=== PATIENT | female | born 1945 | race Caucasian/White ===

== ENCOUNTER 2021-05-05 09:03 | Outpatient (CLI) | payer MEDICARE, OTHER | END 2021-05-05 09:04 | disposition home or self-care (01) | LOC: CSHCT 09:03 | PROVIDERS: ATTEND Nurse Practitioner Acute Care | DX: M54.42 Lumbago with sciatica, left side (principal); M47.816 Spondylosis without myelopathy or radiculopathy, lumbar region | CPT/HCPCS: 72131 ==

== ENCOUNTER 2021-07-29 09:36 | Emergency (ER) | payer MEDICARE, OTHER | END 2021-07-29 11:20 | disposition home or self-care (01) | LOC: CSHERS 09:36 | DX: S29.012A Strain of muscle and tendon of back wall of thorax, initial encounter (principal); S16.1XXA Strain of muscle, fascia and tendon at neck level, initial encounter; E11.9 Type 2 diabetes mellitus without complications; I10 Essential (primary) hypertension; Z79.899 Other long term (current) drug therapy | CPT/HCPCS: 72072 ==

== ENCOUNTER 2021-07-30 13:17 | Inpatient (IN) | payer MEDICARE, OTHER ==
[2021-07-30 14:18] LABS: Hemoglobin 10.8 g/dL (12.0-15.5); Mean Corpuscular Hemoglobin 27.8 pg (27.0-33.0); Mean Corpuscular Volume 89.5 fl (81.6-98.3); Platelet Count 143 10x3/uL (150-450); RBC Distribution Width 13.6 % (11.5-14.5); Red Blood Cell (RBC) Count 3.89 10x6/uL (3.90-5.03); White Blood Cell (WBC) Count 8.5 10x3/uL (3.5-10.5)
[2021-07-30 14:20] LABS: ALT (SGPT) 48 U/L (8-55); AST (SGOT) 126 U/L (5-34); Albumin 3.3 g/dL (3.4-4.8); Alkaline Phosphatase 45 U/L (40-110); Anion Gap 13 mmol/L (10-20); BUN (Urea Nitrogen) 17 mg/dL (9.8-20.1); Bilirubin, Total 0.6 mg/dL (0.2-1.2); Calc. Creatinine Clearance 0 mL/min (70-130); Calcium 9.6 mg/dL (7.8-10.44); Carbon Dioxide 25 mmol/L (23-31); Chloride 99 mmol/L (98-107); Globulin 2.9 g/dL (2.4-3.5); Glucose 245 mg/dL (83-110); Potassium 3.4 mmol/L (3.5-5.1); Protein, Total 6.2 g/dL (5.8-8.1); Sodium 134 mmol/L (136-145)
[2021-07-30 14:27] LABS: MDiff Complete? YES
[2021-07-30] MEDS ORDERED: Cefepime 2 GM VIAL ONE (15:02)
[2021-07-30 15:08] LABS: Band 3 % (5-11); Eosinophils 1 % (0-10); Lymphocytes 8 % (21-51); Monocytes 9 % (0-10); Neutrophil 78 % (42-75); Nucleated RBC 1 % (0); Reactive Lymphocytes 1 % (0-10)
[2021-07-30 15:09] LABS: Platelet Morphology Comment Appears Adequate
[2021-07-30 15:47] LABS: CKMB 77.2 ng/mL (0-6.6)
[2021-07-30 17:46] LABS: Troponin I 0.091 ng/mL (< 0.028)
[2021-07-30] MEDS ORDERED: HumaLOG 300 UNITS/3 ML VIAL SC PRN (17:47)
[2021-07-30] MEDS ORDERED: Dextrose 50% Abboject 50 ML SYRINGE SLOW IVP PRN (17:47)
[2021-07-30] MEDS ORDERED: Dextrose 5% in Water 1,000 ML IV PRN (17:47)
[2021-07-30] MEDS ORDERED: METHOTREXATE SODIUM 10 MG PO SCH (18:00)
[2021-07-30 18:10] LABS: Lactic Acid 3.6 mmol/L (0.5-2.2)
[2021-07-30 19:10] VITALS: BMI 29.2
[2021-07-30] MEDS: Lactated Ringer's 1,000 ML IV SCH (20:46)
[2021-07-30] MEDS: Cholecalciferol 1,000 UNITS (25 MCG) TAB PO SCH (20:46)
[2021-07-30] MEDS: Acetaminophen 325 MG TAB PO PRN (20:46)
[2021-07-30] MEDS: Carvedilol 12.5 MG TAB PO SCH (20:47)
[2021-07-30] MEDS ORDERED: SIMVASTATIN 80 MG PO SCH (21:00)
[2021-07-30] MEDS ORDERED: Potassium Chloride 20 MEQ TAB PO SCH (21:00)
[2021-07-30 22:03] LABS: Troponin I 0.085 ng/mL (< 0.028)
[2021-07-31] MEDS: Vancomycin HCl 500 MG in Sodium Chloride 0.9% 100 ML IVPB SCH ×2 (03:56→17:36)
[2021-07-31 05:40] LABS: Anion Gap 12 mmol/L (10-20); BUN (Urea Nitrogen) 16 mg/dL (9.8-20.1); Calc. Creatinine Clearance 75 mL/min (70-130); Calcium 9.3 mg/dL (7.8-10.44); Carbon Dioxide 27 mmol/L (23-31); Chloride 105 mmol/L (98-107); Glucose 153 mg/dL (83-110); Potassium 3.9 mmol/L (3.5-5.1); Sodium 140 mmol/L (136-145)
[2021-07-31 06:13] LABS: Platelet Count 141 10x3/uL (150-450)
[2021-07-31 06:14] LABS: Hemoglobin 10.5 g/dL (12.0-15.5); Mean Corpuscular HGB CONC 31.1 g/dL (32.0-36.0); Mean Corpuscular Hemoglobin 27.6 pg (27.0-33.0); Mean Corpuscular Volume 88.9 fl (81.6-98.3); Mean Platelet Volume 11.7 fl (7.4-10.4); RBC Distribution Width 13.8 % (11.5-14.5); White Blood Cell (WBC) Count 9.5 10x3/uL (3.5-10.5)
[2021-07-31 06:16] LABS: MDiff Complete? YES
[2021-07-31 06:17] LABS: Platelet Morphology Comment PLT clumps seen-ADEQ; RBC Morphology Normal
[2021-07-31 06:21] LABS: Band 10 % (5-11); Lymphocytes 12 % (21-51); Metamyelocyte 1 % (0-0); Monocytes 13 % (0-10); Neutrophil 63 % (42-75); Promyelocytes 1 % (0-0)
[2021-07-31 06:23] LABS: Toxic Granulation SLIGHT
[2021-07-31] MEDS: Glimepiride 2 MG TAB PO SCH ×2 (09:44→17:36)
[2021-07-31] MEDS: Lactated Ringer's 1,000 ML IV SCH (09:44)
[2021-07-31] MEDS: Carvedilol 12.5 MG TAB PO SCH ×2 (09:44→21:43)
[2021-07-31] MEDS: Pioglitazone HCl 15 MG TAB PO SCH (09:45)
[2021-07-31] MEDS: Cholecalciferol 1,000 UNITS (25 MCG) TAB PO SCH ×2 (09:45→21:46)
[2021-07-31] MEDS: CEFAZOLIN 1 GM in Sodium Chloride 0.9% 100 ML IVPB SCH ×2 (13:58→21:46)
[2021-07-31 15:33] LABS: SARS-CoV-2 PCR by NAA Not Detected (NotDetected)
[2021-07-31] MEDS: Acetaminophen 325 MG TAB PO PRN (21:44)
[2021-08-01 03:52] LABS: Platelet Count 130 10x3/uL (150-450)
[2021-08-01 03:53] LABS: Hemoglobin 10.6 g/dL (12.0-15.5); Mean Corpuscular HGB CONC 31.7 g/dL (32.0-36.0); Mean Corpuscular Hemoglobin 27.7 pg (27.0-33.0); Mean Corpuscular Volume 87.2 fl (81.6-98.3); RBC Distribution Width 13.7 % (11.5-14.5); Red Blood Cell (RBC) Count 3.83 10x6/uL (3.90-5.03); White Blood Cell (WBC) Count 8.8 10x3/uL (3.5-10.5)
[2021-08-01 03:54] LABS: MDiff Complete? YES
[2021-08-01 03:55] LABS: Lactic Acid 0.9 mmol/L (0.5-2.2)
[2021-08-01 04:05] LABS: Anion Gap 11 mmol/L (10-20); BUN (Urea Nitrogen) 12 mg/dL (9.8-20.1); Calc. Creatinine Clearance 92 mL/min (70-130); Calcium 9.2 mg/dL (7.8-10.44); Carbon Dioxide 28 mmol/L (23-31); Chloride 105 mmol/L (98-107); Glucose 65 mg/dL (83-110); Magnesium 1.9 mg/dL (1.6-2.6); Potassium 3.3 mmol/L (3.5-5.1); Sodium 141 mmol/L (136-145)
[2021-08-01 04:12] LABS: Band 8 % (5-11); Lymphocytes 7 % (21-51); Monocytes 9 % (0-10); Neutrophil 74 % (42-75); Reactive Lymphocytes 2 % (0-10)
[2021-08-01 04:14] LABS: Vancomycin, Trough 4.3 ug/mL
[2021-08-01 04:14] LABS: Platelet Morphology Comment Appears Decreased; RBC Morphology Normal
[2021-08-01] MEDS ORDERED: Vancomycin HCl 1 GM in Sodium Chloride 0.9% 250 ML 250 ML IVPB SCH (05:00)
[2021-08-01] MEDS: Vancomycin HCl 500 MG in Sodium Chloride 0.9% 100 ML IVPB SCH (05:06)
[2021-08-01] MEDS: CEFAZOLIN 1 GM in Sodium Chloride 0.9% 100 ML IVPB SCH ×2 (06:48→14:57)
[2021-08-01] MEDS: Carvedilol 12.5 MG TAB PO SCH ×2 (08:56→20:47)
[2021-08-01] MEDS: Cholecalciferol 1,000 UNITS (25 MCG) TAB PO SCH ×2 (08:56→20:48)
[2021-08-01] MEDS: Pioglitazone HCl 15 MG TAB PO SCH (08:56)
[2021-08-01] MEDS: Glimepiride 2 MG TAB PO SCH ×2 (08:56→16:50)
[2021-08-01] MEDS ORDERED: Potassium Chloride 20 MEQ TAB PO SCH (09:00)
[2021-08-01] MEDS: Nystatin 500,000 UNITS/5 ML UDCUP SSP SCH ×3 (14:57→20:47)
[2021-08-01] MEDS: Oxacillin 2 GM in Sodium Chloride 0.9% 100 ML IVPB SCH ×2 (16:50→20:47)
[2021-08-02] MEDS: Oxacillin 2 GM in Sodium Chloride 0.9% 100 ML IVPB SCH ×6 (02:18→21:59)
[2021-08-02] MEDS: Nystatin 500,000 UNITS/5 ML UDCUP SSP SCH ×6 (03:32→21:58)
[2021-08-02 05:38] LABS: #Monocytes 0.8 10x3/uL (0.0-1.1); %Basophils 0.1 % (0.0-2.0); %Eosinophils 0.5 % (0.0-6.0); %Lymphocytes 8.3 % (18.0-47.0); %Monocytes 9.5 % (0.0-10.0); %Neutrophils 80.6 % (40.0-75.0); Hemoglobin 10.6 g/dL (12.0-15.5); Mean Corpuscular HGB CONC 31.4 g/dL (32.0-36.0); Mean Corpuscular Hemoglobin 27.4 pg (27.0-33.0); Mean Corpuscular Volume 87.3 fl (81.6-98.3); Mean Platelet Volume 11.4 fl (7.4-10.4); Platelet Count 145 10x3/uL (150-450); RBC Distribution Width 13.7 % (11.5-14.5); Red Blood Cell (RBC) Count 3.87 10x6/uL (3.90-5.03); White Blood Cell (WBC) Count 8.6 10x3/uL (3.5-10.5)
[2021-08-02 05:49] LABS: Anion Gap 12 mmol/L (10-20); BUN (Urea Nitrogen) 9 mg/dL (9.8-20.1); Calc. Creatinine Clearance 112 mL/min (70-130); Calcium 8.8 mg/dL (7.8-10.44); Carbon Dioxide 25 mmol/L (23-31); Chloride 107 mmol/L (98-107); Glucose 117 mg/dL (83-110); Sodium 141 mmol/L (136-145)
[2021-08-02] MEDS: Pioglitazone HCl 15 MG TAB PO SCH (08:34)
[2021-08-02] MEDS: Carvedilol 12.5 MG TAB PO SCH ×2 (08:34→21:58)
[2021-08-02] MEDS: Cholecalciferol 1,000 UNITS (25 MCG) TAB PO SCH ×2 (08:34→21:58)
[2021-08-02] MEDS: Glimepiride 2 MG TAB PO SCH ×2 (08:34→17:26)
[2021-08-02] MEDS ORDERED: Potassium Chloride 20 MEQ TAB PO SCH (09:00)
[2021-08-02] MEDS: Acetaminophen 325 MG TAB PO PRN ×2 (12:10→18:18)
[2021-08-02] MEDS ORDERED: Morphine 4 MG/ML VIAL SLOW IVP SCH (21:15)
[2021-08-03] MEDS: Oxacillin 2 GM in Sodium Chloride 0.9% 100 ML IVPB SCH ×6 (00:36→20:05)
[2021-08-03] MEDS: Nystatin 500,000 UNITS/5 ML UDCUP SSP SCH ×7 (04:16→21:13)
[2021-08-03 05:42] LABS: Anion Gap 15 mmol/L (10-20); BUN (Urea Nitrogen) 11 mg/dL (9.8-20.1); Calc. Creatinine Clearance 108 mL/min (70-130); Calcium 8.8 mg/dL (7.8-10.44); Carbon Dioxide 26 mmol/L (23-31); Chloride 106 mmol/L (98-107); Glucose 97 mg/dL (83-110); Potassium 3.6 mmol/L (3.5-5.1); Sodium 143 mmol/L (136-145)
[2021-08-03 05:43] LABS: #Eosinphils 0.1 10x3/uL (0.0-0.5); #Monocytes 0.9 10x3/uL (0.0-1.1); #Neutrophils 6.6 10x3/uL (1.5-8.4); %Basophils 0.2 % (0.0-2.0); %Eosinophils 1.5 % (0.0-6.0); %Lymphocytes 9.6 % (18.0-47.0); %Monocytes 10.2 % (0.0-10.0); %Neutrophils 77.3 % (40.0-75.0); Hemoglobin 11.2 g/dL (12.0-15.5); Mean Corpuscular HGB CONC 31.5 g/dL (32.0-36.0); Mean Corpuscular Hemoglobin 27.3 pg (27.0-33.0); Mean Corpuscular Volume 86.8 fl (81.6-98.3); Platelet Count 195 10x3/uL (150-450); White Blood Cell (WBC) Count 8.5 10x3/uL (3.5-10.5)
[2021-08-03] MEDS: Carvedilol 12.5 MG TAB PO SCH ×2 (10:10→20:06)
[2021-08-03] MEDS: Saccharomyces boulardii 250 MG CAP PO SCH (10:10)
[2021-08-03] MEDS: Acetaminophen 325 MG TAB PO PRN ×3 (10:11→20:06)
[2021-08-03] MEDS: Cholecalciferol 1,000 UNITS (25 MCG) TAB PO SCH ×2 (10:11→20:06)
[2021-08-03] MEDS: Pioglitazone HCl 15 MG TAB PO SCH (10:12)
[2021-08-03] MEDS: Glimepiride 2 MG TAB PO SCH ×2 (10:13→16:15)
[2021-08-03] MEDS: Melatonin 3 MG TAB PO PRN (20:06)
[2021-08-04] MEDS: Oxacillin 2 GM in Sodium Chloride 0.9% 100 ML IVPB SCH ×6 (01:42→20:39)
[2021-08-04] MEDS: Nystatin 500,000 UNITS/5 ML UDCUP SSP SCH ×6 (01:43→23:55)
[2021-08-04] MEDS: Acetaminophen 325 MG TAB PO PRN (03:39)
[2021-08-04 05:24] LABS: Anion Gap 11 mmol/L (10-20); BUN (Urea Nitrogen) 8 mg/dL (9.8-20.1); Calc. Creatinine Clearance 117 mL/min (70-130); Calcium 8.5 mg/dL (7.8-10.44); Carbon Dioxide 26 mmol/L (23-31); Chloride 106 mmol/L (98-107); Glucose 182 mg/dL (83-110); Sodium 140 mmol/L (136-145)
[2021-08-04 05:25] LABS: #Eosinphils 0.2 10x3/uL (0.0-0.5); #Monocytes 0.6 10x3/uL (0.0-1.1); #Neutrophils 4.1 10x3/uL (1.5-8.4); %Basophils 0.5 % (0.0-2.0); %Eosinophils 3.1 % (0.0-6.0); %Lymphocytes 14.7 % (18.0-47.0); %Neutrophils 70.3 % (40.0-75.0); Hemoglobin 10.5 g/dL (12.0-15.5); Mean Corpuscular HGB CONC 31.4 g/dL (32.0-36.0); Mean Corpuscular Hemoglobin 26.9 pg (27.0-33.0); Mean Corpuscular Volume 85.6 fl (81.6-98.3); Mean Platelet Volume 10.8 fl (7.4-10.4); Platelet Count 213 10x3/uL (150-450); RBC Distribution Width 14.2 % (11.5-14.5); White Blood Cell (WBC) Count 5.8 10x3/uL (3.5-10.5)
[2021-08-04 05:27] LABS: Potassium 2.9 mmol/L (3.5-5.1)
[2021-08-04] MEDS: Carvedilol 12.5 MG TAB PO SCH ×2 (05:31→20:39)
[2021-08-04 07:29] LABS: Magnesium 1.8 mg/dL (1.6-2.6)
[2021-08-04] MEDS: Saccharomyces boulardii 250 MG CAP PO SCH (07:32)
[2021-08-04] MEDS: Cholecalciferol 1,000 UNITS (25 MCG) TAB PO SCH ×2 (07:32→20:39)
[2021-08-04] MEDS: Pioglitazone HCl 15 MG TAB PO SCH (07:32)
[2021-08-04] MEDS: Glimepiride 2 MG TAB PO SCH ×2 (07:32→15:59)
[2021-08-04] MEDS: Potassium Chloride 20 MEQ in Premix Bag 1 BAG IVPB SCH ×3 (07:53→15:03)
[2021-08-04] MEDS ORDERED: Morphine 4 MG/ML VIAL SLOW IVP SCH (08:15)
[2021-08-04] MEDS: Magnesium Oxide 400 MG TAB PO SCH (08:20)
[2021-08-04] MEDS ORDERED: PROPOFOL 20 ML ONE ×2 (11:26)
[2021-08-04] MEDS: HYDROcodone/Acetaminophen 10/325 mg Tablet PO PRN ×2 (16:40→20:39)
[2021-08-04] MEDS ORDERED: Potassium Chloride 20 MEQ in Premix Bag 1 BAG IVPB SCH (17:00)
[2021-08-04 19:26] LABS: Anion Gap 13 mmol/L (10-20); BUN (Urea Nitrogen) 8 mg/dL (9.8-20.1); Calc. Creatinine Clearance 114 mL/min (70-130); Calcium 8.4 mg/dL (7.8-10.44); Carbon Dioxide 21 mmol/L (23-31); Chloride 107 mmol/L (98-107); Glucose 155 mg/dL (83-110); Potassium 4.3 mmol/L (3.5-5.1); Sodium 137 mmol/L (136-145)
[2021-08-04] MEDS: Melatonin 3 MG TAB PO PRN (20:54)
[2021-08-05] MEDS: Nystatin 500,000 UNITS/5 ML UDCUP SSP SCH ×6 (01:40→22:00)
[2021-08-05] MEDS: Oxacillin 2 GM in Sodium Chloride 0.9% 100 ML IVPB SCH ×6 (01:40→21:14)
[2021-08-05] MEDS: HYDROcodone/Acetaminophen 10/325 mg Tablet PO PRN ×2 (01:41→05:59)
[2021-08-05 05:32] LABS: #Eosinphils 0.2 10x3/uL (0.0-0.5); #Monocytes 0.7 10x3/uL (0.0-1.1); #Neutrophils 4.8 10x3/uL (1.5-8.4); %Basophils 0.4 % (0.0-2.0); %Eosinophils 2.9 % (0.0-6.0); %Lymphocytes 15.2 % (18.0-47.0); %Monocytes 9.5 % (0.0-10.0); %Neutrophils 70.5 % (40.0-75.0); Anion Gap 11 mmol/L (10-20); BUN (Urea Nitrogen) 8 mg/dL (9.8-20.1); Calc. Creatinine Clearance 110 mL/min (70-130); Calcium 8.7 mg/dL (7.8-10.44); Carbon Dioxide 28 mmol/L (23-31); Chloride 107 mmol/L (98-107); Glucose 113 mg/dL (83-110); Hemoglobin 10.5 g/dL (12.0-15.5); Mean Corpuscular HGB CONC 31.3 g/dL (32.0-36.0); Mean Corpuscular Hemoglobin 27.6 pg (27.0-33.0); Mean Corpuscular Volume 88.2 fl (81.6-98.3); Mean Platelet Volume 10.3 fl (7.4-10.4); Platelet Count 244 10x3/uL (150-450); RBC Distribution Width 14.4 % (11.5-14.5); Sodium 142 mmol/L (136-145); White Blood Cell (WBC) Count 6.8 10x3/uL (3.5-10.5)
[2021-08-05] MEDS: Carvedilol 12.5 MG TAB PO SCH ×2 (07:58→21:14)
[2021-08-05] MEDS: Glimepiride 2 MG TAB PO SCH ×2 (07:58→15:51)
[2021-08-05] MEDS: Pioglitazone HCl 15 MG TAB PO SCH (07:58)
[2021-08-05] MEDS: Saccharomyces boulardii 250 MG CAP PO SCH (07:59)
[2021-08-05] MEDS: Ondansetron PF 4 MG/2 ML Vial IVP PRN (08:00)
[2021-08-05] MEDS: Cholecalciferol 1,000 UNITS (25 MCG) TAB PO SCH ×2 (08:00→21:14)
[2021-08-05] MEDS: Magnesium Oxide 400 MG TAB PO SCH (08:00)
[2021-08-05] MEDS: Promethazine HCl 12.5 MG in Sodium Chloride 0.9% 50 ML IVPB PRN (10:15)
[2021-08-05] MEDS: Morphine 4 MG/ML VIAL SLOW IVP PRN ×2 (10:15→21:04)
[2021-08-05] MEDS: Acetaminophen 325 MG TAB PO PRN ×2 (16:10→23:27)
[2021-08-06] MEDS: Oxacillin 2 GM in Sodium Chloride 0.9% 100 ML IVPB SCH ×6 (01:31→21:05)
[2021-08-06] MEDS: Morphine 4 MG/ML VIAL SLOW IVP PRN ×6 (01:39→21:41)
[2021-08-06] MEDS ORDERED: Morphine 4 MG/ML VIAL ONE (01:39)
[2021-08-06] MEDS: Nystatin 500,000 UNITS/5 ML UDCUP SSP SCH ×7 (03:18→21:23)
[2021-08-06 05:25] LABS: #Eosinphils 0.2 10x3/uL (0.0-0.5); #Monocytes 0.6 10x3/uL (0.0-1.1); #Neutrophils 4.3 10x3/uL (1.5-8.4); %Basophils 0.6 % (0.0-2.0); %Lymphocytes 19.9 % (18.0-47.0); %Monocytes 8.6 % (0.0-10.0); %Neutrophils 66.6 % (40.0-75.0); Hemoglobin 10.4 g/dL (12.0-15.5); Mean Corpuscular HGB CONC 31.3 g/dL (32.0-36.0); Mean Corpuscular Hemoglobin 27.4 pg (27.0-33.0); Mean Corpuscular Volume 87.6 fl (81.6-98.3); Mean Platelet Volume 10.2 fl (7.4-10.4); Platelet Count 273 10x3/uL (150-450); RBC Distribution Width 14.3 % (11.5-14.5); Red Blood Cell (RBC) Count 3.79 10x6/uL (3.90-5.03); White Blood Cell (WBC) Count 6.4 10x3/uL (3.5-10.5)
[2021-08-06 05:31] LABS: Anion Gap 10 mmol/L (10-20); BUN (Urea Nitrogen) 6 mg/dL (9.8-20.1); Calc. Creatinine Clearance 108 mL/min (70-130); Calcium 8.7 mg/dL (7.8-10.44); Carbon Dioxide 30 mmol/L (23-31); Chloride 106 mmol/L (98-107); Glucose 119 mg/dL (83-110); Sodium 142 mmol/L (136-145)
[2021-08-06] MEDS: Magnesium Oxide 400 MG TAB PO SCH (08:30)
[2021-08-06] MEDS: Saccharomyces boulardii 250 MG CAP PO SCH (08:30)
[2021-08-06] MEDS: HYDROcodone/Acetaminophen 10/325 mg Tablet PO PRN ×3 (08:30→20:16)
[2021-08-06] MEDS: Cholecalciferol 1,000 UNITS (25 MCG) TAB PO SCH ×2 (08:31→20:16)
[2021-08-06] MEDS: Carvedilol 12.5 MG TAB PO SCH ×2 (08:31→20:16)
[2021-08-06] MEDS: Glimepiride 2 MG TAB PO SCH ×3 (08:32→18:38)
[2021-08-06] MEDS: Pioglitazone HCl 15 MG TAB PO SCH (08:32)
[2021-08-06] MEDS: Ondansetron PF 4 MG/2 ML Vial IVP PRN (16:30)
[2021-08-06] MEDS: Promethazine HCl 12.5 MG in Sodium Chloride 0.9% 50 ML IVPB PRN (18:28)
[2021-08-06 22:30] VITALS: BP 166/70; TEMP 98.1
== END 2021-08-06 22:05 | disposition short-term general hospital (02) | DRG 314 ==
LOC: CSHERS 13:17 → CSHTELE 19:07
PROVIDERS: ADMIT Internal Medicine; ATTEND Internal Medicine
DX: T82.7XXA Infection and inflammatory reaction due to other cardiac and vascular devices, implants and grafts, initial encounter (principal); A41.01 Sepsis due to Methicillin susceptible Staphylococcus aureus; L03.221 Cellulitis of neck; E87.2 Acidosis; I42.0 Dilated cardiomyopathy; M60.08 Infective myositis, other site; Z20.822 Contact with and (suspected) exposure to COVID-19; E78.5 Hyperlipidemia, unspecified; I11.0 Hypertensive heart disease with heart failure; I50.9 Heart failure, unspecified; M19.90 Unspecified osteoarthritis, unspecified site; E11.9 Type 2 diabetes mellitus without complications; I44.7 Left bundle-branch block, unspecified; E87.6 Hypokalemia; E04.2 Nontoxic multinodular goiter; Y83.1 Surgical operation with implant of artificial internal device as the cause of abnormal reaction of the patient, or of later complication, without mention of misadventure at the time of the procedure; Z88.0 Allergy status to penicillin; Z88.8 Allergy status to other drugs, medicaments and biological substances; Z79.82 Long term (current) use of aspirin; Z79.899 Other long term (current) drug therapy; Z85.3 Personal history of malignant neoplasm of breast; Z95.810 Presence of automatic (implantable) cardiac defibrillator; Z98.890 Other specified postprocedural states; Z90.49 Acquired absence of other specified parts of digestive tract; Z90.710 Acquired absence of both cervix and uterus; Z90.89 Acquired absence of other organs
CPT/HCPCS: 36415; 36416; 70450; 70496; 70498; 71250; 72072; 76536; 80048; 80053; 80202; 82553; 83605; 83735; 83880; 84484; 85025; 87040; 87077; 87149; 87186; 93005; 93010; 93306; 93312; J0690; J0692; J2270; J2405; J2550; J2700; J2704; J3370; J3480; J3490; J7050; J7120; U0003; U0005

== ENCOUNTER 2021-08-27 10:32 | Emergency (ER) | payer MEDICARE, OTHER | END 2021-08-27 12:10 | disposition home or self-care (01) | LOC: CSHERS 10:32 | DX: T82.898A Other specified complication of vascular prosthetic devices, implants and grafts, initial encounter (principal); I10 Essential (primary) hypertension; E78.5 Hyperlipidemia, unspecified; E11.9 Type 2 diabetes mellitus without complications | CPT/HCPCS: 99283 ==

== ENCOUNTER 2021-09-07 12:25 | Outpatient (CLI) | payer MEDICARE, OTHER | END 2021-09-07 12:26 | disposition home or self-care (01) | LOC: CSHCT 12:25 | PROVIDERS: ATTEND Internal Medicine Infectious Disease | DX: J98.51 Mediastinitis (principal); M79.89 Other specified soft tissue disorders; M25.9 Joint disorder, unspecified; N64.59 Other signs and symptoms in breast | CPT/HCPCS: 71260 ==

== ENCOUNTER 2021-10-01 10:15 | Outpatient (CLI) | payer MEDICARE, OTHER | END 2021-10-01 10:16 | disposition home or self-care (01) | LOC: CSHMAMMO 10:15 | PROVIDERS: ATTEND Family Medicine | DX: Z13.820 Encounter for screening for osteoporosis (principal); M85.851 Other specified disorders of bone density and structure, right thigh; M85.852 Other specified disorders of bone density and structure, left thigh | CPT/HCPCS: 77080 ==

== ENCOUNTER 2021-11-09 08:06 | Outpatient (CLI) | payer MEDICARE, OTHER ==
[2021-11-09 08:49] LABS: Estimated GFR-MDRD - POC Greater than 90
== END 2021-11-09 08:07 | disposition home or self-care (01) ==
LOC: CSHCT 08:06
PROVIDERS: ATTEND Internal Medicine Infectious Disease
DX: J98.51 Mediastinitis (principal); M19.09 Primary osteoarthritis, other specified site; N64.9 Disorder of breast, unspecified; I38 Endocarditis, valve unspecified
CPT/HCPCS: 36415; 71260; 80048; 82565; 85025; 86140